=== PATIENT | female | born 1970 | race Hispanic/Latino ===

== ENCOUNTER 2017-10-07 12:49 | Emergency (ER) | payer BC, OTHER ==
[~2017-10-07] VITALS: Ht 154.9 cm; Wt 98.4 kg
[2017-10-07] MEDS ORDERED: SODIUM CHLORIDE 0.9% 1000ML 1,000 ML IV STA (13:05)
[2017-10-07 13:27] LABS: BASOPHILS % 0.4 % (0.0-1.0); EOSINOPHILS # (AUTO) 0.1 (0.0-0.4); EOSINOPHILS % 0.7 % (0.0-6.0); HEMATOCRIT 26.6 % (34.2-44.1); HEMOGLOBIN 7.6 g/dL (12.0-16.0); LYMPHOCYTES # (AUTO) 2.9 (1.0-3.2); LYMPHOCYTES % 31.3 % (18.0-39.1); MEAN CORPUSCULAR HEMOGLOBIN 18.3 pg (28-32); MEAN CORPUSCULAR HGB CONC 28.6 g/dL (31-35); MEAN CORPUSCULAR VOLUME 64.1 fL (81-99); MONOCYTES # (AUTO) 0.3 (0.2-0.8); MONOCYTES % 3.5 % (4.4-11.3); NEUTROPHILS # (AUTO) 5.9 (2.1-6.9); NEUTROPHILS % 63.2 % (38.7-80.0); PLATELET COUNT 307 x10e3/uL (140-360); RED BLOOD COUNT 4.15 x10e6/uL (3.6-5.1); RED CELL DISTRIBUTION WIDTH 18.9 % (11.7-14.4)
[2017-10-07 13:36] LABS: INR 1.16; PROTHROMBIN TIME 13.9 seconds (11.9-14.5)
[2017-10-07 13:37] LABS: PARTIAL THROMBOPLASTIN TIME 26.5 seconds (23.8-35.5)
[2017-10-07] MEDS ORDERED: SODIUM CHLORIDE 0.9% 250ML 250 ML IV ONE (13:45)
--- NOTE | 2017-10-07 13:45 | Diagnostic Imaging Report ---
PROCEDURE: A single AP view of the chest. COMPARISON: 03/08/09 INDICATIONS: SHORTNESS OF BREATH FINDINGS: Lines/tubes: None. Lungs: Limited by body habitus.The lungs are well inflated and clear. There is no evidence of pneumonia or pulmonary edema. Pleura: There is no pleural effusion or pneumothorax. Heart and mediastinum: The heart and the mediastinum are unremarkable. Bones: No acute bony abnormality. IMPRESSION: 1. No acute cardiopulmonary disease. Dictated by: Parminder France M.D. on 10/07/2017 at 13:48 Electronically approved by: Parminder France M.D. on 10/07/2017 at 13:48
[2017-10-07 13:46] LABS: ALANINE AMINOTRANSFERASE 26 IU/L (0-55); ALBUMIN 3.4 g/dL (3.5-5.0); ALKALINE PHOSPHATASE 93 IU/L (40-150); ANION GAP 11.9 mmol/L (8-16); BLOOD UREA NITROGEN 7 mg/dL (7-26); BUN/CREATININE RATIO 10 (6-25); CARBON DIOXIDE 24 mmol/L (22-29); CHLORIDE 103 mmol/L (98-107); CREATINE KINASE 31 IU/L (29-168); CREATININE, SERUM 0.71 mg/dL (0.57-1.11); EST GLOMERULAR FILTRATION RATE > 60 ML/MIN (60-); GLUCOSE 234 mg/dL (74-118); MAGNESIUM 1.9 MG/DL (1.3-2.1); POTASSIUM 3.9 mmol/L (3.5-5.1); SODIUM 135 mmol/L (136-145)
[2017-10-07 13:57] LABS: CLARITY,URINE TURBID (CLEAR); COLOR,URINE RED (YELLOW); KETONES,URINE TRACE (NEGATIVE); LEUKOCYTE ESTERASE ,URINE TRACE (NEGATIVE); NITRITE,URINE POSITIVE (NEGATIVE); PROTEIN,URINE DIPSTICK 2+ (NEGATIVE); URINE UROBILINOGEN 1 mg/dL (0.2 - 1)
[2017-10-07 13:58] LABS: BILIRUBIN,URINE 1+ (NEGATIVE)
[2017-10-07 14:01] LABS: BACTERIA,URINE RARE /HPF; EPITHELIAL CELLS,URINE FEW /LPF; RBC,URINE 21-50 /HPF (0-5)
[2017-10-07 14:05] LABS: THYROID STIMULATING HORMONE 3.432 uIU/mL (0.350-4.940)
[2017-10-07 17:43] VITALS: BP 109/62
== END 2017-10-07 18:23 | disposition home or self-care (01) ==
LOC: ER 12:49
DX: N93.8 Other specified abnormal uterine and vaginal bleeding (principal); N39.0 Urinary tract infection, site not specified; R31.9 Hematuria, unspecified; D50.0 Iron deficiency anemia secondary to blood loss (chronic); E66.9 Obesity, unspecified; Z68.41 Body mass index [BMI] 40.0-44.9, adult
CPT/HCPCS: 36415; 71045; 80053; 81001; 82550; 82553; 83735; 84443; 84484; 84702; 85025; 85610; 85730; 86850; 86900; 86920; 93005; 99284; J7030; J7050; P9016

== ENCOUNTER 2019-10-26 10:22 | Observation (INO) | payer BC, OTHER ==
[~2019-10-26] VITALS: Ht 154.9 cm; Wt 89.4 kg
[2019-10-26 12:16] LABS: BASOPHILS % 0.4 % (0.0-1.0); EOSINOPHILS # (AUTO) 0.2 (0.0-0.4); EOSINOPHILS % 3.5 % (0.0-6.0); LYMPHOCYTES # (AUTO) 2.3 (1.0-3.2); LYMPHOCYTES % 33.3 % (18.0-39.1); MEAN CORPUSCULAR HEMOGLOBIN 13.1 pg (28-32); MEAN CORPUSCULAR HGB CONC 23.1 g/dL (31-35); MEAN CORPUSCULAR VOLUME 56.9 fL (81-99); MONOCYTES # (AUTO) 0.3 (0.2-0.8); MONOCYTES % 4.9 % (4.4-11.3); NEUTROPHILS % 57.6 % (38.7-80.0); PLATELET COUNT 374 x10e3/uL (140-360); RED CELL DISTRIBUTION WIDTH 22.5 % (11.7-14.4)
[2019-10-26 12:24] LABS: INR 0.96; PROTHROMBIN TIME 13.4 seconds (11.9-14.5)
[2019-10-26 12:25] LABS: PARTIAL THROMBOPLASTIN TIME 26.5 seconds (23.8-35.5)
[2019-10-26 12:27] LABS: HEMOGLOBIN 6.7 g/dL (12.0-16.0)
[2019-10-26 12:32] LABS: ALANINE AMINOTRANSFERASE 15 IU/L (0-55); ALBUMIN 3.6 g/dL (3.5-5.0); ALBUMIN/GLOBULIN RATIO 0.9 (0.8-2.0); ALKALINE PHOSPHATASE 92 IU/L (40-150); BLOOD UREA NITROGEN 5 mg/dL (7-26); BUN/CREATININE RATIO 8 (6-25); CALCIUM 9.4 mg/dL (8.4-10.2); CARBON DIOXIDE 23 mmol/L (22-29); CHLORIDE 106 mmol/L (98-107); CREATININE, SERUM 0.63 mg/dL (0.57-1.11); EST GLOMERULAR FILTRATION RATE > 60 ML/MIN (60-); GLUCOSE 123 mg/dL (74-118); SODIUM 138 mmol/L (136-145)
[2019-10-26 13:31] LABS: ANISOCYTOSIS MARKED; ELLIPTOCYTE, RBC SLIGHT; HYPOCHROMASIA MARKED; PLATELET ESTIMATE SLIGHTLY INCREASED; RBC MORPHOLOGY COMMENT ABNORMAL
[2019-10-26 13:32] LABS: MICROCYTOSIS MODERATE; OVALOCYTES FEW
[2019-10-26 13:33] LABS: SCHISTOCYTES RARE; TEAR DROP CELLS FEW
[2019-10-26 13:34] LABS: PLATELET MORPHOLOGY COMMENT NORMAL
[2019-10-26] MEDS ORDERED: SODIUM CHLORIDE 0.9% 250ML 250 ML IV ONE (14:15)
[2019-10-26] MEDS ORDERED: FUROSEMIDE INJ 10 MG/ML 2 ML VIAL IV PRN (14:15)
[2019-10-26] MEDS ORDERED: SODIUM CHLORIDE 0.9% 1000ML 1,000 ML IV SCH (14:30)
[2019-10-26] MEDS ORDERED: ACETAMINOPHEN 325 MG TAB PO PRN (14:30)
[2019-10-26] MEDS ORDERED: ONDANSETRON HCL INJ 2MG/ML 2ML 2 MG/ML VIAL IV PRN (14:30)
--- NOTE | 2019-10-26 14:34 | Emergency Department Note ---
History of Present Illnes History of Present Illness Chief Complaint: General Medicine Complaints History of Present Illness This is a 49 year old female 6.9 hemoglobin at [facility]. aaox4. ambulatory. no cp no sob. Mild weakness Historian: Patient Arrival Mode: Car Debeader Required: No Radiation: Reports non-radiation Severity: mild Onset quality: gradual Timing of current episode: intermittent Progression: waxing and waning Chronicity: chronic Context: Denies recent illness Relieving factors: none Exacerbating factors: none Associated symptoms: Reports weakness Treatments prior to arrival: none Past Medical/Family History Physician Review I have reviewed the patient's past medical and family history. Any updates have been documented here. Past Medical History Recent Fever: No Clinical Suspicion of Infectio: No New/Unexplained Change in Ment: No Past Medical History: Anemia Other Medical History: anemia Past Surgical History: Other Surgery: nose and throat sx Social History Smoking Cessation: Never Smoker Counseling Performed: No Alcohol Use: None Any Illegal Drug Use: No TB Exposure/Symptoms: No Physically hurt or threatened: No Other Last Tetanus: ood Any Pre-Existing Lines (PICC,: No Is patient up to date on immun: No Last Flu: UTD Last Pneumovax: N/A Review of Systems Review of Systems Constitutional: Reports as per HPI, Reports weakness EENTM: Reports no symptoms Cardiovascular: Reports no symptoms Respiratory: Reports no symptoms Gastrointestinal: Reports no symptoms Genitourinary: Reports no symptoms Musculoskeletal: Reports no symptoms Integumentary: Reports no symptoms Neurological: Reports no symptoms Psychological: Reports no symptoms Endocrine: Reports no symptoms Hematological/Lymphatic: Reports no symptoms Physical Exam Related Data Allergies: Coded Allergies: No Known Drug Allergies (Verified Allergy, Unknown, 03/07/09) Triage Vital Signs Vital Signs Date Time Temp Pulse Resp B/P (MAP) Pulse Ox O2 Delivery O2 Flow Rate FiO2 10/26/19 11:15 98.9 83 16 170/79 100 Vital signs reviewed: Yes Physical Exam CONSTITUTIONAL Constitutional: Present morbidly obese HENT HENT: Present normocephalic, Present atraumatic, Present oropharynx clear/moist, Present nose normal HENT L/R: Present left ext ear normal, Present right ext ear normal EYES Eyes: Reports PERRL, Reports conjunctivae normal NECK Neck: Present ROM normal PULMONARY Pulmonary: Present effort normal, Present breath sounds normal CARDIOVASCULAR Cardiovascular: Present regular rhythm, Present heart sounds normal, Present capillary refill normal, Present normal rate GASTROINTESTINAL Abdominal: Present soft, Present nontender, Present bowel sounds normal GENITOURINARY Genitourinary: Present exam deferred SKIN Skin: Present warm, Present dry MUSCULOSKELETAL Musculoskeletal: Present ROM normal NEUROLOGICAL Neurological: Present alert, Present oriented x 3, Present no gross motor or sensory deficits PSYCHOLOGICAL Psychological: Present mood/affect normal, Present judgement normal Results Laboratory Result Diagram: 10/26/19 1100 10/26/19 1100 Laboratory Laboratory Tests Test 10/26/19 11:00 White Blood Count 6.87 x10e3/uL (4.8-10.8) Red Blood Count 5.10 x10e6/uL (3.6-5.1) Hemoglobin 6.7 g/dL (12.0-16.0) Hematocrit 29.0 % (34.2-44.1) Mean Corpuscular Volume 56.9 fL (81-99) Mean Corpuscular Hemoglobin 13.1 pg (28-32) Mean Corpuscular Hemoglobin Concent 23.1 g/dL (31-35) Red Cell Distribution Width 22.5 % (11.7-14.4) Platelet Count 374 x10e3/uL (140-360) Neutrophils (%) (Auto) 57.6 % (38.7-80.0) Lymphocytes (%) (Auto) 33.3 % (18.0-39.1) Monocytes (%) (Auto) 4.9 % (4.4-11.3) Eosinophils (%) (Auto) 3.5 % (0.0-6.0) Basophils (%) (Auto) 0.4 % (0.0-1.0) Neutrophils # (Auto) 4.0 (2.1-6.9) Lymphocytes # (Auto) 2.3 (1.0-3.2) Monocytes # (Auto) 0.3 (0.2-0.8) Eosinophils # (Auto) 0.2 (0.0-0.4) Basophils # (Auto) 0.0 (0.0-0.1) Absolute Immature Granulocyte (auto 0.02 x10e3/uL (0-0.1) Platelet Estimate Slightly increased Platelet Morphology Comment Normal Hypochromasia Marked Anisocytosis Marked Microcytosis Moderate Tear Drop Cells Few Ovalocytes Few Elliptocytes Slight Schistocytes Rare Red Cell Morphology Comment Abnormal Prothrombin Time 13.4 seconds (11.9-14.5) Prothromb Time International Ratio 0.96 Activated Partial Thromboplast Time 26.5 seconds (23.8-35.5) Sodium Level 138 mmol/L (136-145) Potassium Level 4.0 mmol/L (3.5-5.1) Chloride Level 106 mmol/L (98-107) Carbon Dioxide Level 23 mmol/L (22-29) Anion Gap 13.0 mmol/L (8-16) Blood Urea Nitrogen 5 mg/dL (7-26) Creatinine 0.63 mg/dL (0.57-1.11) Estimat Glomerular Filtration Rate > 60 ML/MIN (60-) BUN/Creatinine Ratio 8 (6-25) Glucose Level 123 mg/dL (74-118) Calcium Level 9.4 mg/dL (8.4-10.2) Total Bilirubin 0.4 mg/dL (0.2-1.2) Aspartate Amino Transf (AST/SGOT) 19 IU/L (5-34) Alanine Aminotransferase (ALT/SGPT) 15 IU/L (0-55) Alkaline Phosphatase 92 IU/L (40-150) Total Protein 7.4 g/dL (6.5-8.1) Albumin 3.6 g/dL (3.5-5.0) Globulin 3.8 g/dL (2.3-3.5) Albumin/Globulin Ratio 0.9 (0.8-2.0) Human Chorionic Gonadotropin, Qual Negative (NEGATIVE) Lab results reviewed: Yes Assessment & Plan Medical Decision Making MDM cbc, chem, pt/ptt, preg, T&S - r/o anemia, coagulopathy, renal insuff Reassessment Reassessment admit to Dr Marr, obs, 2 units prbc's Assessment & Plan Final Impression: (1) Anemia Depart Disposition: ADMITTED Last Vital Signs Date Time Temp Pulse Resp B/P (MAP) Pulse Ox O2 Delivery O2 Flow Rate FiO2 10/26/19 13:55 65 18 124/67 100 10/26/19 11:15 98.9 Medications in the ED Sodium Chloride 250 ml @ 0 mls/hr ONCE ONCE IV ; Start 10/26/19 at 14:15; Stop 10/26/19 at 14:16; Status UNV Furosemide 20 mg ONCE PRN IV SHORTNESS OF BREATH; Start 10/26/19 at 14:15; Stop 11/25/19 at 14:14; Status UNV ARSENIO ALFRED MD Oct 26, 2019 14:34
--- NOTE | 2019-10-26 15:40 | NUR ---
Blood products initiated please see blood product requisition sheet.
[2019-10-26 16:45] VITALS: BP 131/63
[2019-10-26 16:54] VITALS: BP 131/63
[2019-10-26 16:55] VITALS: BP 131/63
[2019-10-26] MEDS ORDERED: HYDRALAZINE HCL 20 MG/ML VIAL IV PRN (17:15)
[2019-10-26] MEDS ORDERED: BISACODYL 5 MG TAB EC PO ONE (18:00)
--- NOTE | 2019-10-26 19:15 | NUR ---
Patient visited in room during nursing rounds. Patient alert and oriented x3. Tongan speaking only. Pt just finished 1st unit of PRBC transfusion. Pt scheduled to receive 2nd unit of PRBC tonight as per MD order. Pt ambulatory in room prn. No c/o pain or any discomfort at this time. Call eller within reach. Will monitor pt closely.
[2019-10-26] MEDS ORDERED: SODIUM CHLORIDE 0.9% 250ML 250 ML ONE (20:16)
--- NOTE | 2019-10-26 20:20 | NUR ---
2nd unit of PRBC started to infuse on patient. Pt v/s stable no c/o discomfort or pain from pt at this time.
[2019-10-26 20:23] VITALS: BP 125/74
[2019-10-26 21:00] VITALS: BP 125/74
[2019-10-26] MEDS ORDERED: MELATONIN 5 MG TABLET PO PRN (21:00)
--- NOTE | 2019-10-26 23:00 | NUR ---
Patient had bowel movement but stool was very small and little in amount and not enough for sample to send to lab for occult blood. Had in toilet. Pt stated she will call if she had another bowel movement.
--- NOTE | 2019-10-26 23:18 | NUR ---
Pt just finished transfusion of 2nd unit of PRBC. Pt tolerated transfusion well.
[2019-10-27] VITALS: BP 132/99
[2019-10-27 04:00] VITALS: BP 151/75
[2019-10-27 05:48] LABS: BASOPHILS # (AUTO) 0.1 (0.0-0.1); BASOPHILS % 0.6 % (0.0-1.0); EOSINOPHILS # (AUTO) 0.3 (0.0-0.4); EOSINOPHILS % 3.3 % (0.0-6.0); HEMATOCRIT 36.3 % (34.2-44.1); HEMOGLOBIN 9.4 g/dL (12.0-16.0); LYMPHOCYTES % 35.9 % (18.0-39.1); MEAN CORPUSCULAR HGB CONC 25.9 g/dL (31-35); MEAN CORPUSCULAR VOLUME 61.6 fL (81-99); MONOCYTES # (AUTO) 0.4 (0.2-0.8); MONOCYTES % 4.2 % (4.4-11.3); NEUTROPHILS # (AUTO) 4.7 (2.1-6.9); NEUTROPHILS % 55.6 % (38.7-80.0); PLATELET COUNT 364 x10e3/uL (140-360); RED BLOOD COUNT 5.89 x10e6/uL (3.6-5.1); RED CELL DISTRIBUTION WIDTH 29.2 % (11.7-14.4)
[2019-10-27 06:18] LABS: ANION GAP 11.2 mmol/L (8-16); BLOOD UREA NITROGEN 6 mg/dL (7-26); BUN/CREATININE RATIO 9 (6-25); CARBON DIOXIDE 24 mmol/L (22-29); CHLORIDE 105 mmol/L (98-107); CREATININE, SERUM 0.68 mg/dL (0.57-1.11); EST GLOMERULAR FILTRATION RATE > 60 ML/MIN (60-); GLUCOSE 126 mg/dL (74-118); POTASSIUM 4.2 mmol/L (3.5-5.1); SODIUM 136 mmol/L (136-145)
[2019-10-27] MEDS: PANTOPRAZOLE SOD 40 MG TABEC PO SCH ×2 (06:26→06:29)
[2019-10-27 06:42] LABS: % IRON SATURATION 4 % (15-50); IRON 22 ug/dL (50-170); TOTAL IRON BINDING CAPACITY 608 ug/dL (261-478); TRANSFERRIN 434 mg/dL (180-382)
--- NOTE | 2019-10-27 06:56 | NUR ---
BEDSIDE SHIFT REPORT RECEIVED FROM OFF GOING NURSE. PATIENT IS RESTING IN BED, NO ACUTE DISTRESS NOTED. CALL LIGHT WITHIN REACH. BED IN THE LOWEST POSITION.
[2019-10-27 07:09] LABS: FERRITIN < 1.00 ng/mL (4.63-204.00)
[2019-10-27 09:24] VITALS: BP 147/69
[2019-10-27] MEDS ORDERED: FERROUS SULFAT325 MG PO (09:37)
[2019-10-27] MEDS ORDERED: ASCORBIC ACID500 MG PO (09:37)
[2019-10-27 11:41] VITALS: BP 147/69
[2019-10-27 11:58] LABS: ANISOCYTOSIS MARKED; HYPOCHROMASIA MARKED; MICROCYTOSIS MODE; RBC MORPHOLOGY COMMENT ABNORMAL
--- NOTE | 2019-10-27 12:46 | NUR ---
RECEIVED A DISCHARGE ORDER FROM JAYCE HOPKINS. PATIENT IS IN STABLE CONDITION. IV LINE TO ANTECUBITAL DISCONTINUED WITH TIP INTACT, PRESSURE APPLIED TO SITE, NO BLEEDING NOTED. TEACHING PROVIDED TO PATIENT, SHE VERBALIZED UNDERSTANDING. DISCHARGE FOLDER WITH PAPERWORK AND PRESCRIPTIONS ON HAND. ALL PERSONAL ITEMS ON HAND. PATIENT ACCOMPANIED TO PRIVATE AUTO VIA WHEELCHAIR BY STAFF.
[2019-10-27 12:55] VITALS: BP 134/70
[2019-10-28] MEDS ORDERED: FERROUS SULFATE 325 MG TAB PO SCH (09:00)
[2019-10-28] MEDS ORDERED: ASCORBIC ACID 500 MG TAB PO SCH (09:00)
--- NOTE | 2019-10-28 16:20 | Discharge Summary ---
ADMISSION DIAGNOSES: Acute blood loss anemia, secondary to menorrhagia, obesity with a BMI of 37.2, iron deficiency anemia. DISCHARGE DIAGNOSES: Acute blood loss anemia, secondary to menorrhagia, obesity with a BMI of 37.2, iron deficiency anemia. Rule out gastrointestinal bleed. HISTORY: Anemia, menorrhagia. SURGICAL HISTORY: None. FAMILY HISTORY: None. SOCIAL HISTORY: None. HOSPITAL COURSE: A 49-year-old female, admits with past medical history of anemia secondary to menorrhagia, admits with hemoglobin of 6.9 and GFR Clinic yesterday. She denies bright red blood per rectum and black tarry stool. Her last period was one month ago. On admission, the patient's hemoglobin was 6.7, two PRBCs were ordered, which brought her hemoglobin up to 9.4. She was started on vitamin C and iron. Her stool for occult blood was negative. The patient will discharge home with prescriptions for ascorbic acid and iron. She will follow up with primary care in 1 to 2 weeks. The patient understands discharge instructions and agrees to plan. Vital signs are stable. The patient is afebrile. Dictated by Erin Cardoza NP MD MARY Posadas/MIGEL /[id number]
== END 2019-10-27 12:46 | disposition home or self-care (01) ==
LOC: ER 10:57 → INTOOBSV 14:23 → ERHOLD 14:23 → MED/SURG 16:00
PROVIDERS: ADMIT Internal Medicine; ATTEND Internal Medicine
DX: D62 Acute posthemorrhagic anemia (principal); N92.0 Excessive and frequent menstruation with regular cycle; E66.9 Obesity, unspecified; Z68.37 Body mass index [BMI] 37.0-37.9, adult; Z11.59 Encounter for screening for other viral diseases
CPT/HCPCS: 36415 ×2; 80048; 80053; 82270; 82607; 82728; 82746; 83540; 84466; 84702; 85025 ×2; 85610; 85730; 86850; 86900; 86920; 87635; 99284; G0378 ×2; J7030; J7050; P9016; S0164